=== PATIENT | female | born 1960 | race Caucasian/White ===

== ENCOUNTER 2016-07-12 23:12 | Emergency (ER) | payer OTHER ==
[2016-07-12 23:18] VITALS: BP 133/79; RESP 20
[2016-07-12] MEDS ORDERED: ALBUTEROL/IPRATROPIUM 1 VIAL SOL INH ONE (23:21)
[2016-07-12] MEDS ORDERED: SOLUMEDROL 125 MG/2 ML 125 MG/2 ML PDS IM ONE (23:21)
[2016-07-12 23:36] VITALS: PULSE 114; O2SAT 91
[2016-07-12 23:55] VITALS: TEMP 99.2
== END 2016-07-12 23:53 | disposition home or self-care (01) | DRG 203 ==
LOC: ED 23:12
DX: J45.909 Unspecified asthma, uncomplicated (principal)
CPT/HCPCS: 99283

== ENCOUNTER 2016-08-23 00:49 | Emergency (ER) | payer OTHER ==
[2016-08-23 01:02] VITALS: RESP 16; TEMP 98; O2SAT 97
[2016-08-23 01:45] VITALS: BP 155/88; PULSE 68
== END 2016-08-23 01:41 | disposition home or self-care (01) | DRG 556 ==
LOC: ED 00:49
DX: M25.521 Pain in right elbow (principal); W19.XXXA Unspecified fall, initial encounter
CPT/HCPCS: 73070; 99282